=== PATIENT | male | born 1955 | race Two or more races ===

== ENCOUNTER 2018-10-31 05:46 | Day surgery (SDC) | payer OTHER ==
[~2018-10-31 05:46] MED LIST: ATORVASTATIN CA20 MG PO; LANTAPROST; PRILOSEC10 MG; VYZULTA5 ML OPHT
[2018-10-31] MEDS ORDERED: PERCOCET 5-3251 EACH PO (10:17)
[2018-10-31] MEDS ORDERED: RECTICARE30 GM TOP (10:17)
== END 2018-10-31 17:00 | disposition home or self-care (01) ==
LOC: CIR.AMB 05:46
DX: K60.1 Chronic anal fissure (principal); K60.5 Anorectal fistula

== ENCOUNTER 2019-02-20 08:01 | Day surgery (SDC) | payer OTHER ==
[~2019-02-20 08:01] MED LIST changes: +LISINOPR PO; +PERCOCET 5-3251 EACH PO; +RECTICARE30 GM TOP
[2019-02-20] MEDS ORDERED: PERCOCET 5-3251 EACH PO (13:44)
[2019-02-20] MEDS ORDERED: KETOROLAC TROME10 MG PO (13:45)
[2019-02-20] MEDS ORDERED: NEURONTIN300 MG PO (13:45)
== END 2019-02-20 17:46 | disposition home or self-care (01) ==
LOC: CIR.AMB 08:01
DX: K60.3 Anal fistula (principal)

== ENCOUNTER 2019-07-24 05:36 | Day surgery (SDC) | payer OTHER ==
[~2019-07-24 05:36] MED LIST changes: +KETOROLAC TROME10 MG PO; +NEURONTIN300 MG PO
[2019-07-24] MEDS ORDERED: NEURONTIN300 MG PO (08:55)
[2019-07-24] MEDS ORDERED: PERCOCET 5-3251 EACH PO (08:56)
[2019-07-24] MEDS ORDERED: RECTICARE30 GM TOP (08:57)
== END 2019-07-24 12:40 | disposition home or self-care (01) ==
LOC: CIR.AMB 05:36
DX: K60.5 Anorectal fistula (principal); K60.3 Anal fistula

== ENCOUNTER 2019-12-04 06:35 | Day surgery (SDC) | payer OTHER ==
[~2019-12-04 06:35] MED LIST changes: +HYDRODIURIL12.5 MG PO
[2019-12-04] MEDS ORDERED: ULTRACET PO (08:50)
== END 2019-12-04 14:25 | disposition home or self-care (01) ==
LOC: CIR.AMB 06:35
DX: K60.5 Anorectal fistula (principal)